=== PATIENT | male | born 1980 | race Caucasian/White ===

== ENCOUNTER 2024-02-04 23:21 | Emergency (ER) | payer OTHER, SELFPAY ==
[2024-02-04 23:28] VITALS: BP 146/101; PULSE 120; RESP 18; TEMP 37.1; O2SAT 95; BMI 28.3
[2024-02-05 01:37] VITALS: BP 138/84; PULSE 118; RESP 16; TEMP 36.3; O2SAT 96
[2024-02-05 04:06] VITALS: BP 121/93; PULSE 102; RESP 16; TEMP 36.2; O2SAT 99
--- NOTE | 2024-02-05 06:00 | ED.WOUNDLAC ---
HPI - Wound/Laceration General Chief Complaint: Wound/Laceration Stated Complaint: head laceration Time Seen by Provider: 02/05/24 05:38 Source: patient Mode of arrival: ambulatory Limitations: no limitations History of Present Illness ED Provider: Dr. Cyndee Cervantes HPI narrative: Patient comes to the emergency room complaining of a laceration to the scalp. Patient states that the big would not post fell on his head while he was in the garage. Patient did not lose consciousness. Patient states that he does not know when he had his last tetanus shot. Patient willing to have 1 today. Patient denies being on blood thinners Related Data Allergies Allergy/AdvReac Type Severity Reaction Status Date / Time shellfish derived Allergy Angioedema Verified 02/04/24 23:31 Crustaceans Allergy Unknown HIVES Uncoded 02/04/24 23:28 Review of Systems Review of Systems: Constitutional : No Weight loss, No Fever, No Chills, No Night Sweats, No Fatigue, No Malaise ENT/Mouth : No Hearing loss, No Ear Pain, No Nasal Congestion, No Sinus Pain, No Hoarseness, No sore throat, No Rhinorrhea, No Swallowing Difficulty Eyes: No Eye Pain, No Swelling, No Redness, No Foreign Body, No Discharge, No Vision Changes Cardiovascular : No Chest Pain, No SOB, No Dyspnea on Exertion, No Orthopnea, No Edema, No Palpitations Respiratory : No Cough, No Sputum, No Wheezing, No Smoke Exposure, No Dyspnea Gastrointestinal : No Nausea, No Vomiting, No Diarrhea, No Constipation, No abdominal Pain, No Hematochezia, No Melena Genitourinary : no irregular bleeding, No Dysuria, No Urinary Frequency, No Hematuria, No Urinary Incontinence, No Urgency, No Flank Pain, No Urinary Flow Changes, No Hesitancy Musculoskeletal : No joint pain, No Myalgias, No Joint Swelling Skin : Complaining of a laceration to the scalp about 3 cm Neuro : No Weakness, No Numbness, No Paresthesias, No Loss of Consciousness, No Dizziness, No Headache Psych : No Anxiety/Panic, No Depression, No SI/HI/AH/VH, No Social Issues, Heme/Lymph: No Bruising, No Bleeding,No Lymphadenopathy Endocrine : No Polyuria, No Polydipsia, No Temperature Intolerance PMFSH Social History Social History Advance Directives: No Advance Directives Information Provided: Yes Physical Exam Vital Signs: Vital Signs: Last Vital Signs Temp 97.2 F 02/05/24 04:06 Pulse 102 H 02/05/24 04:06 Resp 16 02/05/24 04:06 BP 121/93 H 02/05/24 04:06 Pulse Ox 99 02/05/24 04:06 O2 Del Method Room Air 02/05/24 04:06 BMI result Body Mass Index 28.3 Const: Other: Appearance: Alert. Oriented X3. No acute distress. Eyes: Pupils equal, round and reactive to light. ENT: Pharynx normal. Neck: Normal inspection. Neck supple. No lymph nodes noted. No crepitus CVS: Normal heart rate and rhythm. Pulses normal. Normal S1 and S2 Respiratory: No respiratory distress. Breath sounds normal. No Wheezing. No rales Abdomen: Soft and nontender. No rigidity. No distention. Skin: Skin warm and dry. Normal skin color. Normal skin turgor. There is a 3 cm laceration to the scalp on the left Extremities: No lower extremity edema. No Lacerations. No Rash Neuro: Oriented X 3. No motor deficit. No sensory deficit. Moving all extremities. No slurred speech. CN 2 through 12 grossly intact Psych: calm, cooperative, normal affect Medical Decision Making Medical Decision Making MDM Narrative: Patient was given the option to get kwan with or with the lidocaine. Patient opted to get lidocaine. - 7 cc of lidocaine were injected in the scalp, 7 kwan were applied. Patient tolerated well the procedure. Patient was given a Tdap booster Procedures Laceration Laceration 1: Site: scalp Size (cm): 3 Description: linear and irregular Depth: simple, single layer Local Anesthetic: lidocaine 1% Amount of anesthesia used (mL): 7 Skin layer closed with: other (Kwan) Number of sutures: 7 Discharge Plan Discharge Clinical Impression: Laceration Patient Disposition: Home, Self-Care Instructions: Laceration (ED) Additional Instructions: Your kwan need to be removed in 7-10 days. Please follow-up with your primary care physician tomorrow. If you have any worsening or new symptoms, please return to the emergency room or call 911 Stand Alone Forms: Work/School Release Print Language: Occitan
[2024-02-05 06:22] VITALS: BP 134/86; PULSE 90; RESP 16; TEMP 36.4; O2SAT 95
[2024-02-05] MEDS: Diphth,Pertus(ACell),Tet Adult 0.5 ML SYRINGE IM (06:22)
[2024-02-05 06:37] VITALS: BP 134/86; PULSE 90; RESP 16; TEMP 36.4; O2SAT 95
== END 2024-02-05 06:20 | disposition home or self-care (01) ==
PROVIDERS: Emergency Provider Emergency Medicine
DX: S01.01XA Laceration without foreign body of scalp, initial encounter (principal); R51.9 Headache, unspecified; W18.30XA Fall on same level, unspecified, initial encounter; Y93.89 Activity, other specified; Y92.89 Other specified places as the place of occurrence of the external cause; Y99.8 Other external cause status; Z23 Encounter for immunization
CPT/HCPCS: 12002; 90471; 90715; 99284